=== PATIENT | female | born 1990 | race Two or more races ===

== ENCOUNTER 2020-09-15 17:16 | Emergency (ER) | payer OTHER ==
[~2020-09-15] VITALS: Ht 162.6 cm; Wt 60.8 kg
[2020-09-15] MEDS ORDERED: PRENA1 CHEW TA1.4 MG (17:55)
== END 2020-09-15 22:37 | disposition home or self-care (01) ==
LOC: ER 17:16
DX: O43.891 Other placental disorders, first trimester (principal); Z3A.01 Less than 8 weeks gestation of pregnancy

== ENCOUNTER 2021-05-02 11:45 | Inpatient (IN) | payer OTHER ==
[~2021-05-02] VITALS: Ht 162.6 cm; Wt 3.2 kg
[~2021-05-02 11:45] MED LIST: PRENA1 CHEW TA1.4 MG
== END 2021-05-21 13:24 | disposition home or self-care (01) | DRG 788 ==
LOC: LDR 05-19 05:17 → OB/GYN 05-19 19:51 → LDR 05-21 11:45 → OB/GYN 05-21 13:24
PROVIDERS: ADMIT Obstetrics & Gynecology; ATTEND Obstetrics & Gynecology
PROC: 3E033VJ Introduction of Other Hormone into Peripheral Vein, Percutaneous Approach (ICD-10-PCS; 2021-05-19)
PROC: 10907ZC Drainage of Amniotic Fluid, Therapeutic from Products of Conception, Via Natural or Artificial Opening (ICD-10-PCS; 2021-05-19)
PROC: 4A1HXFZ Monitoring of Products of Conception, Cardiac Rhythm, External Approach (ICD-10-PCS; 2021-05-19)
PROC: 10D00Z1 Extraction of Products of Conception, Low, Open Approach (ICD-10-PCS; principal; 2021-05-19 18:15)
DX: O62.1 Secondary uterine inertia (principal); O64.0XX0 Obstructed labor due to incomplete rotation of fetal head, not applicable or unspecified; Z37.0 Single live birth; Z3A.39 39 weeks gestation of pregnancy

== ENCOUNTER 2021-05-16 12:47 | Outpatient (CLI) | payer OTHER | END 2021-05-16 13:42 | disposition home or self-care (01) | LOC: NST 12:47 | PROVIDERS: ATTEND Obstetrics & Gynecology Maternal & Fetal Medicine | DX: Z34.83 Encounter for supervision of other normal pregnancy, third trimester (principal) ==

== ENCOUNTER 2023-01-14 09:36 | Outpatient (CLI) | payer OTHER | END 2023-01-14 11:56 | disposition home or self-care (01) | LOC: PRENATAL 09:36 | PROVIDERS: ATTEND Obstetrics & Gynecology Maternal & Fetal Medicine | DX: O35.9XX0 Maternal care for (suspected) fetal abnormality and damage, unspecified, not applicable or unspecified (principal); O35.3XX0 Maternal care for (suspected) damage to fetus from viral disease in mother, not applicable or unspecified; O26.879 Cervical shortening, unspecified trimester ==